=== PATIENT | female | born 1945 | race Caucasian/White ===

== ENCOUNTER 2019-12-21 06:22 | Inpatient (IN) ==
[2019-12-15 11:31] LABS: Calcium 9.6 MG/DL (8.5-10.1); Osmolality,Calculated 279.4 MOS/KG (273-304)
[2019-12-21] MEDS ORDERED: ALVIMOPAN 12 MG CAPSULE PO ONE (06:30)
[2019-12-21] MEDS ORDERED: ERTAPENEM 1,000 MG in SODIUM CHLORIDE 0.9% 100 ML IV ONE (06:30)
[2019-12-21] MEDS ORDERED: LACTATED RINGERS 1,000 ML IV SCH (08:00)
[2019-12-21] MEDS ORDERED: ACETAMINOPHEN 500 MG TABLET PO ONE (08:27)
[2019-12-21] MEDS ORDERED: FAMOTIDINE 20 MG TABLET PO ONE (08:27)
[2019-12-21] MEDS ORDERED: SCOPOLAMINE 1.5 MG PATCH TRANSDERM ONE (08:42)
[2019-12-21] MEDS ORDERED: GABAPENTIN 400 MG CAPSULE PO ONE (08:42)
[2019-12-21 08:45] LABS: Basophils % 0.3 % (0.0-0.8); Eosinophils # 0.1 10*3/uL (0.0-0.87); Eosinophils % 1.6 % (0.00-10.9); Hematocrit 27.2 VOL% (35.7-47.0); Hemoglobin 7.8 GM/DL (12.0-16.0); Immature Granulocytes % 0.3 %; Immature Granulocytes Absolute 0.02 #; Lymphocytes # 1.6 10*3/uL (1.4-4.0); Lymphocytes % 26.6 % (21.3-54.2); Mean Corpuscular HGB Conc 28.7 GM/DL (32-36); Mean Corpuscular Volume 65.7 FL (87-102); Mean Platelet Volume 9.9 FL (9.6-12.0); Monocytes % 8.1 % (1.7-12.7); Neutrophils % 63.1 % (38.7-73.9); Platelet Count 253 T/CUMM (130-400); Red Blood Count 4.14 MC/CUMM (3.8-5.5); Red Cell Distribution Width 18.7 % (9.3-17.3); White Blood Count 6.1 T/CUMM (4-12)
[2019-12-21 09:03] LABS: Hypochromasia 1+; Microcytosis 2+
[2019-12-21 09:04] LABS: Ovalocytes Few; Platelet Estimate Normal; Polychromasia Slight
[2019-12-21] MEDS ORDERED: ROPIVACAINE 0.5% 30 ML VIAL ONE (14:06)
[2019-12-21] MEDS ORDERED: DEXAMETHASONE 4 MG/1 ML VIAL ONE ×2 (14:06→18:05)
[2019-12-21] MEDS ORDERED: TISSUE ADHESIVE 1 EACH APPLICATOR TOP ONE ×2 (14:09→15:58)
[2019-12-21] MEDS ORDERED: INDOCYANINE GREEN 25 MG VIAL IV ONE (14:09)
[2019-12-21] MEDS ORDERED: ONDANSETRON 4 MG/2 ML VIAL IV PRN (18:01)
[2019-12-21] MEDS ORDERED: HYDROmorphone 2 MG/1 ML VIAL IV PRN ×2 (18:01→19:39)
[2019-12-21] MEDS ORDERED: PHENYLEPHRINE DRIP 20 MG/250 ML PREMIX IV ONE (18:04)
[2019-12-21] MEDS ORDERED: SEVOFLURANE 1 UNIT/15 MINUTE INH ONE (18:04)
[2019-12-21] MEDS ORDERED: LIDOCAINE 2% 5 ML VIAL ONE (18:04)
[2019-12-21] MEDS ORDERED: MIDAZOLAM 2 MG/2 ML VIAL ONE (18:04)
[2019-12-21] MEDS ORDERED: fentaNYL 100 MCG/2 ML VIAL ONE (18:04)
[2019-12-21] MEDS ORDERED: propofoL 200 MG/20 ML VIAL IV ONE (18:04)
[2019-12-21] MEDS ORDERED: ONDANSETRON 4 MG/2 ML VIAL ONE (18:05)
[2019-12-21] MEDS ORDERED: ROCURONIUM 100 MG/10 ML VIAL IV ONE (18:05)
[2019-12-21] MEDS ORDERED: NEOSTIGMINE 10 MG/10 ML VIAL ONE (18:05)
[2019-12-21] MEDS ORDERED: PHENYLEPHRINE 1 MG/10 ML SYRINGE IV ONE (18:05)
[2019-12-21] MEDS ORDERED: GLYCOPYRROLATE 0.4 MG/2 ML VIAL ONE (18:05)
[2019-12-21] MEDS ORDERED: HYDROmorphone 2 MG/1 ML VIAL ONE (18:05)
[2019-12-21] MEDS ORDERED: LACTATED RINGERS 1,000 ML IV ONE (18:05)
[2019-12-21 18:40] LABS: Hematocrit 28.6 VOL% (35.7-47.0)
[2019-12-21 18:41] LABS: Hemoglobin 8.1 GM/DL (12.0-16.0)
[2019-12-21] MEDS ORDERED: MELATONIN 3 MG TABLET PO PRN (19:39)
[2019-12-21 20:19] LABS: Calcium 8.5 MG/DL (8.5-10.1); Osmolality,Calculated 284.3 MOS/KG (273-304)
[2019-12-21 20:26] LABS: Basophils % 0.1 % (0.0-0.8); Hemoglobin 8.2 GM/DL (12.0-16.0); Immature Granulocytes % 0.6 %; Immature Granulocytes Absolute 0.06 #; Lymphocytes # 0.5 10*3/uL (1.4-4.0); Lymphocytes % 5.2 % (21.3-54.2); Mean Corpuscular HGB Conc 27.7 GM/DL (32-36); Mean Corpuscular Volume 67.7 FL (87-102); Mean Platelet Volume 10.2 FL (9.6-12.0); Monocytes % 4.6 % (1.7-12.7); Neutrophils % 89.5 % (38.7-73.9); Platelet Count 267 T/CUMM (130-400); Red Blood Count 4.37 MC/CUMM (3.8-5.5); Red Cell Distribution Width 18.7 % (9.3-17.3); White Blood Count 9.8 T/CUMM (4-12)
[2019-12-21 20:28] LABS: Hematocrit 29.6 VOL% (35.7-47.0)
[2019-12-21] MEDS: KETOROLAC 15 MG/1 ML VIAL IV SCH (20:39)
[2019-12-21] MEDS: CHOLECALCIFEROL 1,000 UNIT TABLET PO SCH (20:39)
[2019-12-21] MEDS: FLUoxetine 20 MG CAPSULE PO SCH (20:40)
[2019-12-21] MEDS: ALVIMOPAN 12 MG CAPSULE PO SCH (20:40)
[2019-12-22] MEDS: KETOROLAC 15 MG/1 ML VIAL IV SCH ×2 (00:46→09:25)
[2019-12-22] MEDS: NEBIVOLOL 5 MG TABLET PO SCH ×2 (02:44→22:16)
[2019-12-22] MEDS: LEVOTHYROXINE 25 MCG TABLET PO SCH (05:36)
[2019-12-22 05:47] LABS: Calcium 8.3 MG/DL (8.5-10.1); Osmolality,Calculated 283.5 MOS/KG (273-304)
[2019-12-22 06:17] LABS: Basophils % 0.1 % (0.0-0.8); Hematocrit 25.7 VOL% (35.7-47.0); Hemoglobin 7.4 GM/DL (12.0-16.0); Immature Granulocytes % 0.6 %; Immature Granulocytes Absolute 0.08 #; Lymphocytes # 1.4 10*3/uL (1.4-4.0); Lymphocytes % 9.8 % (21.3-54.2); Mean Corpuscular HGB Conc 28.8 GM/DL (32-36); Mean Corpuscular Volume 66.8 FL (87-102); Mean Platelet Volume 10.5 FL (9.6-12.0); Monocytes % 8.4 % (1.7-12.7); Neutrophils % 81.1 % (38.7-73.9); Platelet Count 246 T/CUMM (130-400); Red Blood Count 3.85 MC/CUMM (3.8-5.5); Red Cell Distribution Width 18.6 % (9.3-17.3); White Blood Count 14.2 T/CUMM (4-12)
[2019-12-22 06:46] LABS: Hypochromasia 1+; Microcytosis 1+; Ovalocytes Slight; Platelet Estimate Adequate
[2019-12-22] MEDS ORDERED: LACTATED RINGERS 1,000 ML IV ONE (08:30)
[2019-12-22] MEDS: MONTELUKAST 10 MG TABLET PO SCH (09:07)
[2019-12-22] MEDS: ENOXAPARIN 40 MG/0.4 ML SYRINGE SUBCUT SCH (09:07)
[2019-12-22] MEDS: ALVIMOPAN 12 MG CAPSULE PO SCH ×2 (09:07→20:55)
[2019-12-22 12:46] LABS: Basophils % 0.1 % (0.0-0.8); Hematocrit 24.7 VOL% (35.7-47.0); Hemoglobin 6.9 GM/DL (12.0-16.0); Immature Granulocytes % 0.5 %; Immature Granulocytes Absolute 0.07 #; Lymphocytes # 1.8 10*3/uL (1.4-4.0); Lymphocytes % 13.7 % (21.3-54.2); Mean Corpuscular HGB Conc 27.9 GM/DL (32-36); Mean Corpuscular Volume 67.5 FL (87-102); Mean Platelet Volume 10.6 FL (9.6-12.0); Monocytes % 11.8 % (1.7-12.7); Neutrophils % 73.9 % (38.7-73.9); Platelet Count 255 T/CUMM (130-400); Red Blood Count 3.66 MC/CUMM (3.8-5.5); Red Cell Distribution Width 18.8 % (9.3-17.3); White Blood Count 12.7 T/CUMM (4-12)
[2019-12-22 13:04] LABS: Anisocytosis 2+; Platelet Estimate Normal
[2019-12-22 13:17] LABS: Calcium 8.1 MG/DL (8.5-10.1); Osmolality,Calculated 281.5 MOS/KG (273-304)
[2019-12-22] MEDS ORDERED: SODIUM CHLORIDE 0.9% 1,000 ML IV PRN (14:34)
[2019-12-22] MEDS: ONDANSETRON 4 MG/2 ML VIAL IV PRN (19:11)
[2019-12-22] MEDS: CHOLECALCIFEROL 1,000 UNIT TABLET PO SCH (20:55)
[2019-12-22] MEDS: FLUoxetine 20 MG CAPSULE PO SCH (20:55)
[2019-12-22] MEDS: LACTATED RINGERS 1,000 ML IV SCH ×3 (22:14→22:16)
[2019-12-23] MEDS: LACTATED RINGERS 1,000 ML IV SCH (04:50)
[2019-12-23 05:27] LABS: Basophils % 0.2 % (0.0-0.8); Eosinophils % 0.3 % (0.00-10.9); Hematocrit 27.7 VOL% (35.7-47.0); Hemoglobin 8.1 GM/DL (12.0-16.0); Immature Granulocytes % 0.8 %; Immature Granulocytes Absolute 0.09 #; Lymphocytes # 1.5 10*3/uL (1.4-4.0); Lymphocytes % 13.3 % (21.3-54.2); Mean Corpuscular HGB Conc 29.2 GM/DL (32-36); Mean Corpuscular Volume 68.4 FL (87-102); Mean Platelet Volume 10.6 FL (9.6-12.0); Monocytes % 7.7 % (1.7-12.7); Neutrophils % 77.7 % (38.7-73.9); Platelet Count 196 T/CUMM (130-400); Red Blood Count 4.05 MC/CUMM (3.8-5.5); Red Cell Distribution Width 20.4 % (9.3-17.3); White Blood Count 11.1 T/CUMM (4-12)
[2019-12-23] MEDS: LEVOTHYROXINE 25 MCG TABLET PO SCH (05:34)
[2019-12-23] MEDS: ONDANSETRON 4 MG/2 ML VIAL IV PRN (05:34)
[2019-12-23 05:39] LABS: Calcium 8.4 MG/DL (8.5-10.1); Osmolality,Calculated 276.7 MOS/KG (273-304)
[2019-12-23 05:54] LABS: Hypochromasia 1+; Microcytosis 1+
[2019-12-23 05:55] LABS: Ovalocytes Slight; Platelet Estimate Adequate
[2019-12-23] MEDS: ALVIMOPAN 12 MG CAPSULE PO SCH (09:20)
[2019-12-23] MEDS: MONTELUKAST 10 MG TABLET PO SCH (09:20)
[2019-12-23] MEDS: ENOXAPARIN 40 MG/0.4 ML SYRINGE SUBCUT SCH (09:21)
[2019-12-23 11:29] VITALS: BP 107/91
== END 2019-12-23 14:34 | disposition home or self-care (01) | DRG 330 ==
LOC: N.SDSINP 06:22 → N.OR 06:22 → N.SDSINP 06:24 → N.3E 19:15
PROVIDERS: ADMIT Surgery; ATTEND Surgery

== ENCOUNTER 2021-06-19 07:39 | Inpatient (IN) ==
[2021-06-18 12:13] LABS: Basophils % 0.4 % (0.0-0.8); Eosinophils # 0.2 10*3/uL (0.0-0.87); Eosinophils % 3.5 % (0.00-10.9); Hematocrit 44.5 VOL% (35.7-47.0); Hemoglobin 14.4 GM/DL (12.0-16.0); Immature Granulocytes % 0.4 %; Immature Granulocytes Absolute 0.02 #; Lymphocytes # 1.5 10*3/uL (1.4-4.0); Lymphocytes % 29.2 % (21.3-54.2); Mean Corpuscular HGB Conc 32.4 GM/DL (32-36); Mean Corpuscular Volume 88.3 FL (87-102); Mean Platelet Volume 10.9 FL (9.6-12.0); Monocytes # 0.4 10*3/uL (0.11-0.8); Monocytes % 8.1 % (1.7-12.7); Neutrophils % 58.4 % (38.7-73.9); Platelet Count 261 T/CUMM (130-400); Red Blood Count 5.04 MC/CUMM (3.8-5.5); Red Cell Distribution Width 14.1 % (9.3-17.3); White Blood Count 5.2 T/CUMM (4-12)
[2021-06-18 12:26] LABS: PT Patient Result 11.2 SECS (10.5-12.0); Partial Thromboplastin Time 27.6 SECS (23.8-32.1)
[2021-06-18 12:38] LABS: Calcium 9.7 MG/DL (8.5-10.1); Osmolality,Calculated 279.3 MOS/KG (273-304); Potassium 4.1 MMOL/L (3.5-5.1)
[2021-06-19] MEDS ORDERED: ceFAZolin 1,000 MG VIAL ONE (08:56)
[2021-06-19] MEDS ORDERED: LACTATED RINGERS 1,000 ML IV SCH (09:00)
[2021-06-19] MEDS ORDERED: ACETAMINOPHEN 500 MG TABLET PO ONE (09:01)
[2021-06-19] MEDS ORDERED: FAMOTIDINE 20 MG TABLET PO ONE (09:01)
[2021-06-19] MEDS ORDERED: GABAPENTIN 400 MG CAPSULE PO ONE (09:01)
[2021-06-19] MEDS ORDERED: DIAZEPAM 5 MG TABLET PO ONE (09:01)
[2021-06-19] MEDS ORDERED: LIDOCAINE 2% 5 ML VIAL ONE (11:31)
[2021-06-19] MEDS ORDERED: MIDAZOLAM 2 MG/2 ML VIAL ONE (11:31)
[2021-06-19] MEDS ORDERED: propofoL 200 MG/20 ML VIAL IV ONE (11:31)
[2021-06-19] MEDS ORDERED: ROCURONIUM 50 MG/5 ML VIAL IV ONE (11:31)
[2021-06-19] MEDS ORDERED: fentaNYL 100 MCG/2 ML VIAL ONE (11:31)
[2021-06-19] MEDS ORDERED: PHENYLEPHRINE 1 MG/10 ML SYRINGE IV ONE (11:58)
[2021-06-19] MEDS ORDERED: SEVOFLURANE 1 UNIT/15 MINUTE INH ONE (11:58)
[2021-06-19] MEDS ORDERED: TISSUE ADHESIVE 1 EACH APPLICATOR TOP ONE (12:00)
[2021-06-19] MEDS ORDERED: BUPIVACAINE MPF 0.25% 30 ML VIAL ONE (12:00)
[2021-06-19] MEDS ORDERED: LIDOCAINE 1%/EPI INJ 20 ML VIAL ONE (12:00)
[2021-06-19] MEDS ORDERED: BUPIVACAINE 0.5% 50 ML VIAL ONE (12:26)
[2021-06-19] MEDS ORDERED: GLYCOPYRROLATE 0.4 MG/2 ML VIAL ONE (12:27)
[2021-06-19] MEDS ORDERED: NEOSTIGMINE 10 MG/10 ML VIAL ONE (12:28)
[2021-06-19] MEDS ORDERED: DEXAMETHASONE 4 MG/1 ML VIAL ONE (12:30)
[2021-06-19] MEDS ORDERED: ONDANSETRON 4 MG/2 ML VIAL ONE ×2 (12:30→16:48)
[2021-06-19] MEDS ORDERED: SUGAMMADEX 200 MG/2 ML VIAL IV ONE (12:51)
[2021-06-19] MEDS ORDERED: ONDANSETRON 4 MG/2 ML VIAL IV ONE (16:45)
[2021-06-19 17:47] VITALS: BP 116/55
== END 2021-06-19 17:13 | disposition home or self-care (01) | DRG 354 ==
LOC: N.SDSINP 07:39 → N.OR 07:39 → N.SDSINP 07:41 → EDSTATUS 13:15 → N.OR 17:13 → N.SDSINP 06-20 10:45
PROVIDERS: ADMIT Surgery; ATTEND Surgery